=== PATIENT | female | born 1945 | race Caucasian/White ===

== ENCOUNTER 2020-08-24 16:26 | Emergency (ER) | payer OTHER ==
[~2020-08-24] VITALS: Ht 162.6 cm; Wt 70.0 kg
[~2020-08-24 16:26] MED LIST: ASPI-1265 PO; CALC-955 PO; CEPH-357 PO; CHOL100010 PO; GLUC1CAP32 PO; LOVA40TA76 PO; MULT-785 PO; VITC500T PO
--- NOTE | 2020-08-24 19:19 | NUR ---
PT TRANSFERRED TO CAT SCAN
[2020-08-24 20:24] VITALS: BP 141/88
== END 2020-08-24 20:25 | disposition home or self-care (01) ==
LOC: ER 16:27
DX: S09.90XA Unspecified injury of head, initial encounter (principal); R51.9 Headache, unspecified; M25.562 Pain in left knee; Z79.82 Long term (current) use of aspirin; Z79.2 Long term (current) use of antibiotics; Z79.899 Other long term (current) drug therapy; W19.XXXA Unspecified fall, initial encounter; Y93.89 Activity, other specified; Y92.89 Other specified places as the place of occurrence of the external cause; Y99.8 Other external cause status
CPT/HCPCS: 70450; 73564; 73660; 99284

== ENCOUNTER 2024-05-26 12:16 | Outpatient (CLI) | payer MEDICARE, BC | END 2024-05-26 23:59 | disposition home or self-care (01) | LOC: MRI 12:16 | PROVIDERS: ATTEND Podiatrist Foot & Ankle Surgery | DX: S99.921A Unspecified injury of right foot, initial encounter (principal); M19.071 Primary osteoarthritis, right ankle and foot; M20.11 Hallux valgus (acquired), right foot; M79.671 Pain in right foot; X58.XXXA Exposure to other specified factors, initial encounter; Y93.89 Activity, other specified; Y92.89 Other specified places as the place of occurrence of the external cause; Y99.8 Other external cause status | CPT/HCPCS: 73718 ==